=== PATIENT | female | born 1995 | race Caucasian/White ===

== ENCOUNTER 2016-11-16 19:02 | Emergency (ER) | payer OTHER ==
[~2016-11-16] VITALS: Ht 167.6 cm; Wt 64.0 kg
[~2016-11-16 19:02] MED LIST: AMPH25CA PO; LEVO1TAB33 PO; NORETAB29 PO; PHEN-876 PO
[2016-11-16 19:09] VITALS: TEMP 37; Ht 167.6 cm; Wt 64.0 kg
[2016-11-16] MEDS ORDERED: SODIUM CHLORIDE 0.9% 1000ML 300 ML IV STA (20:31)
[2016-11-16 20:42] LABS: URINE APPEARANCE CLEAR (CLEAR); URINE BILIRUBIN NEG (NEG); URINE COLOR YELLOW; URINE EPITHELIAL CELL AUTO 20-30 /lpf (0-5); URINE NITRITE NEG (NEG); URINE PH 6.5 (4.5-7.5); URINE SPECIFIC GRAVITY 1.018 (1.000-1.030); UROBILINOGEN NEG (NEG); ZZUR CULT IF INDIC CLEAN CATCH YES; ZZURINE CULT IF INDIC CATH YES
[2016-11-16 20:43] LABS: HEMATOCRIT 37.9 % (37-47); MEAN CELL VOLUME 82.8 fL (80-100); MEAN CORPUSCULAR HEMOGLOBIN 28.2 pg (25-34); MEAN PLATELET VOLUME 9.9 fL (7.4-10.4); PLATELET COUNT 375 K/uL (130-400); RED BLOOD COUNT 4.58 M/uL (4.2-5.4); WHITE BLOOD COUNT 9.53 K/uL (4.8-10.8)
[2016-11-16 20:43] LABS: MANUAL MICROSCOPIC REQUIRED? NO; REVIEW REQ? NO
[2016-11-16 21:03] LABS: BASO % 0.2 %; BASO ABS # 0.02 K/uL (0-0.2); COMPLETE YES; EOS % 1.2 %; IG% 0.2 %; LYMPH % 38.9 %; LYMPH ABS # 3.71 K/uL (1.2-3.4); MONO % 7.7 %; NEUT % 51.8 %
[2016-11-16 21:10] LABS: BUN/CREATININE RATIO 19.4 (10-20); CALCIUM 9.2 mg/dl (8.5-10.1); CREATININE 0.7 mg/dl (0.60-1.20); POTASSIUM 3.7 mmol/L (3.5-5.1)
[2016-11-16 21:13] LABS: ALB/GLOB RATIO 1.1 (0.9-2)
--- NOTE | 2016-11-16 22:35 | EMERGENCY ROOM VISIT NOTE ---
History Report prepared by Sonia: Aaron Calixto Under the Supervision of: Dr. Jeff Polk D.O. First contact with patient: 20:55 Chief Complaint: ABDOMINAL PAIN Stated Complaint: ABDOMINAL PAIN- [facility] REFERRED Nursing Triage Summary: pt sent from [facility] [employer] [facility] [employer] pt states she thinks she has a tape worm, states on saturday had sushi then saturday having abd pain and diarrhea and looked in toilet and it looked like a worm History of Present Illness The patient is a 20 year old female who presents to the Emergency Room with complaints of intermittent lower abdominal pain beginning three days prior to arrival. She currently rates her discomfort as a 6/10 in severity. The patient associates intermittent diarrhea beginning three days ago with today's symptoms. She states she believes she saw a worm in her stool a few hours ago. The patient states she has had four bowel movements today that lasted around an hour. She notes she ate sushi four days ago and began experiencing the diarrhea and abdominal pain the following morning. The patient states she went to [facility] today, and they referred the patient to the ED. Source of History: patient Onset: three days [employer] Position: abdomen (lower) Symptom Intensity: 6/10 Timing: intermittent Associated Symptoms: + abdominal pain, + diarrhea Review of Systems See HPI for pertinent positives & negatives. A total of 10 systems reviewed and were otherwise negative. Past Medical & Surgical Surgical Problems: (1) No significant past surgical history (2) Recurrent urinary tract infection Family History Patient reports no known family medical history. Social History Smoking Status: Never Smoker Alcohol Use: occasionally Marital Status: single Housing Status: lives with friends Occupation Status: [employer] student Current/Historical Medications Scheduled Amphetamine-Dextroamphetamine 25MG (Adderall Xr 25MG), 25-50 MG PO DAILY Allergies Coded Allergies: No Known Allergies (Unverified , 11/16/16) Physical Exam Vital Signs Date Time Temp Pulse Resp B/P Pulse Ox O2 Delivery O2 Flow Rate FiO2 11/16/16 21:19 81 18 114/68 99 Room Air 11/16/16 19:09 37.0 77 18 139/99 99 Room Air Physical Exam CONSTITUTIONAL/VITAL SIGNS: Reviewed / noted above. GENERAL: Non-toxic in appearance. INTEGUMENTARY: Warm, dry, and [place]. HEAD: Normocephalic. EYES: without scleral icterus or trauma. ENT/OROPHARYNX: clear and moist. LYMPHADENOPATHY/NECK: Is supple without lymphadenopathy or meningismus. RESPIRATORY: Lungs clear and equal. CARDIOVASCULAR: Regular rate and rhythm. GI/ABDOMEN: Soft and nontender. No organomegaly or pulsatile mass. No rebound or guarding. Normal bowel sounds. EXTREMITIES: Warm and well perfused. BACK: No CVA tenderness. NEUROLOGICAL: Intact without focal deficits. PSYCHIATRIC: normal affect. MUSCULOSKELETAL: Normally developed with good muscle tone. Medical Decision & Procedures Laboratory Results 11/16/16 20:20 Red Blood Count 4.58, Mean Corpuscular Volume 82.8, Mean Corpuscular Hemoglobin 28.2, Mean Corpuscular Hemoglobin Concent 34.0, Mean Platelet Volume 9.9, Neutrophils (%) (Auto) 51.8, Lymphocytes (%) (Auto) 38.9, Monocytes (%) (Auto) 7.7, Eosinophils (%) (Auto) 1.2, Basophils (%) (Auto) 0.2, Neutrophils # (Auto) 4.94, Lymphocytes # (Auto) 3.71, Monocytes # (Auto) 0.73, Eosinophils # (Auto) 0.11, Basophils # (Auto) 0.02 11/16/16 20:20 Test 11/16/16 20:15 11/16/16 20:20 Urine Color YELLOW Urine Appearance CLEAR (CLEAR) Urine pH 6.5 (4.5-7.5) Urine Specific [place] 1.018 (1.000-1.030) Urine Protein NEG (NEG) Urine Glucose (UA) NEG (NEG) Urine Ketones 1+ (NEG) Urine Occult Blood NEG (NEG) Urine Nitrite NEG (NEG) Urine Bilirubin NEG (NEG) Urine Urobilinogen NEG (NEG) Urine Leukocyte Esterase MODERATE (NEG) Urine WBC (Auto) 10-30 /hpf (0-5) Urine RBC (Auto) 5-10 /hpf (0-4) Urine Hyaline Casts (Auto) 1-5 /lpf (0-5) Urine Epithelial Cells (Auto) 20-30 /lpf (0-5) Urine Bacteria (Auto) NEG (NEG) Urine Test NEG (NEG) White Blood Count 9.53 K/uL (4.8-10.8) Red Blood Count 4.58 M/uL (4.2-5.4) Hemoglobin 12.9 g/dL (12.0-16.0) Hematocrit 37.9 % (37-47) Mean Corpuscular Volume 82.8 fL (80-100) Mean Corpuscular Hemoglobin 28.2 pg (25-34) Mean Corpuscular Hemoglobin Concent 34.0 g/dl (32-36) Platelet Count 375 K/uL (130-400) Mean Platelet Volume 9.9 fL (7.4-10.4) Neutrophils (%) (Auto) 51.8 % Lymphocytes (%) (Auto) 38.9 % Monocytes (%) (Auto) 7.7 % Eosinophils (%) (Auto) 1.2 % Basophils (%) (Auto) 0.2 % Neutrophils # (Auto) 4.94 K/uL (1.4-6.5) Lymphocytes # (Auto) 3.71 K/uL (1.2-3.4) Monocytes # (Auto) 0.73 K/uL (0.11-0.59) Eosinophils # (Auto) 0.11 K/uL (0-0.5) Basophils # (Auto) 0.02 K/uL (0-0.2) RDW Standard Deviation 38.8 fL (36.4-46.3) RDW Coefficient of Variation 12.9 % (11.5-14.5) Immature Granulocyte % (Auto) 0.2 % Immature Granulocyte # (Auto) 0.02 K/uL (0.00-0.02) Anion Gap 10.0 mmol/L (3-11) Est Creatinine Clear Calc Drug Dose 117.9 ml/min Estimated GFR () 142.5 Estimated GFR (Non- 123.0 BUN/Creatinine Ratio 19.4 (10-20) Calcium Level 9.2 mg/dl (8.5-10.1) Total Bilirubin 0.3 mg/dl (0.2-1) Aspartate Amino Transf (AST/SGOT) 23 U/L (15-37) Alanine Aminotransferase (ALT/SGPT) 28 U/L (12-78) Alkaline Phosphatase 60 U/L (45-117) Total Protein 7.9 gm/dl (6.4-8.2) Albumin 4.2 gm/dl (3.4-5.0) Globulin 3.7 gm/dl (2.5-4.0) Albumin/Globulin Ratio 1.1 (0.9-2) Lipase 124 U/L (73-393) Laboratory results as stated above per my review. Medications Administered Medications (Trade) Dose Ordered Sig/Nain Route Start Time Stop Time Status Last Admin Dose Admin Sodium Chloride (Nss 1000ml) 300 ml @ 999 mls/hr Q19M STAT IV 11/16/16 20:31 11/16/16 20:49 DC 11/16/16 20:38 999 MLS/HR ED Course 2055: Previous medical records were reviewed. The patient was evaluated in room B9. A complete history and physical examination was performed. 2030: Ordered Sodium Chloride 300 ml @ 999 mls/hr IV. 2236: On reevaluation, the patient is doing well. I discussed the results and findings with the patient. She verbalized agreement of the treatment plan. The patient was discharged home. Medical Decision Differential considered: pancreatitis, hepatitis, or acute cholecystitis, AAA, UTI, pyelonephritis, kidney stones, appendicitis, diverticulitis, shingles, bowel obstruction mesenteric ischemia, intussusception,hernia, ovarian torsion , ruptured ovarian cyst,ectopic , . This is a 20-year-old female who presents to the ED with a chief complaint of diarrhea and abdominal discomfort intermittently. She states that her symptoms started Saturday after eating sushi. The patient thought that she might have seen at tapeworm in the toilet. She took a picture of it. It did not appear to have the texture of a tapeworm but it was a mucousy string. The patient has no other complaints. Abdominal exam revealed no tenderness. CBC and complete metabolic panel were normal. She is not and her urine appears contaminated. Stool for O&P was sent. The patient was told the results of the test. She is felt to be stable for discharge and outpatient follow-up at this time. She was treated with IV fluids. Impression Primary Impression: Diarrhea Additional Impression: Abdominal cramping Scribe Attestation The scribe's documentation has been prepared under my direction and personally reviewed by me in its entirety. I confirm that the note above accurately reflects all work, treatment, procedures, and medical decision making performed by me. Departure Information Dispostion Home / Self-Care Referrals No Doctor, Assigned (PCP) Forms HOME CARE DOCUMENTATION FORM, IMPORTANT VISIT INFORMATION Patient Instructions My [facility] Additional Instructions Stool test has been sent for ova and parasites. You will be contacted within a week if there is abnormalities. Follow-up with [facility] services if symptoms persist. Return for worsening or new concerns. Problem Qualifiers
[2016-11-16 22:54] VITALS: BP 115/78; PULSE 88; O2SAT 99
== END 2016-11-16 23:45 | disposition home or self-care (01) ==
LOC: C.EDB 19:04
DX: R19.7 Diarrhea, unspecified (principal); R10.30 Lower abdominal pain, unspecified; Z79.899 Other long term (current) drug therapy